=== PATIENT | female | born 1955 | race Caucasian/White ===

== ENCOUNTER → 2018-05-09 | Outpatient (CLI) | payer MEDICARE, BC ==
[~2018-05-09] MED LIST: ALBU3IS INH; ALBU90OI6 INH; ALLEGRA ALLERG180 MG PO; ALPR.5 PO; AMOCLA500 PO; ASPI325 PO; BUDE.25 INH; FLUSAL5005 INH; IBUP800; IBUP800 PO; LEVA.63IS INH; LISI5 PO; PRED20 PO; PRODEXEL PO; Prednisone20 MG PO; SPIRIVA RESPIMAT4 G1; Singulair10 MG PO; TYLECOD3 PO
[2018-05-09 14:37] LABS: Appearance, Urine Cloudy (Clear); Bilirubin, Urine Neg (Neg); Blood, Urine 3+ (Neg); Color, Urine Yellow (P-Yellow); Glucose Qualitative, Urine Neg (Neg); Ketones, Urine Neg (Neg); Leukocyte Esterase, Urine 3+ (Neg); Nitrite, Urine Neg (Neg); Protein, Urine 2+ (Neg); Urobilinogen, Urine NORM (Normal)
[2018-05-09 14:51] LABS: Bacteria Few /hpf; Squamous Epithelial Cells Few /hpf (Few); White Blood Cells, Urine TNTC /hpf (0-5)
== END ==
LOC: LAB 12:50 → LAB SHORT 12:50
PROVIDERS: Nurse Practitioner Family
DX: R30.0 Dysuria (principal); R35.0 Frequency of micturition
CPT/HCPCS: 81001; 87077; 87086; 87186

== ENCOUNTER → 2018-11-16 | Outpatient (CLI) | payer MEDICARE, BC ==
[2018-11-17 15:06] LABS: HPV 16 Negative (Negative); HPV 18 Negative (Negative); HPV OTHER HR TYPES Negative (Negative)
== END | disposition home or self-care (01) ==
LOC: LAB SHORT 14:02 → LAB 14:02
PROVIDERS: Nurse Practitioner Family
DX: Z12.4 Encounter for screening for malignant neoplasm of cervix (principal)
CPT/HCPCS: 87624; G0145

== ENCOUNTER 2019-03-17 14:48 | Inpatient (IN) | payer MEDICARE ==
[~2019-03-17] VITALS: Ht 165.1 cm; Wt 85.5 kg
[2019-03-17 15:27] LABS: BASOPHILS ABSOLUTE AUTO 0.05 K/mm3 (0.00-0.23); BASOPHILS PERCENT AUTO 0 % (0-2); EOSINOPHILS ABSOLUTE AUTO 0.66 K/mm3 (0.00-0.68); EOSINOPHILS PERCENT AUTO 6 % (0-6); Hematocrit 44.2 % (33.0-51.0); Hemoglobin 14.1 g/dL (11.5-16.0); IMMATURE GRAN ABSOLUTE AUTO 0.04 K/mm3 (0.00-0.10); IMMATURE GRAN PERCENT AUTO 0 % (0-1); LYMPHOCYTES PERCENT AUTO 15 % (21-46); MONOCYTES ABSOLUTE AUTO 0.56 K/mm3 (0.16-1.47); MONOCYTES PERCENT AUTO 5 % (4-13); Mean Corpuscular HGB 28.8 pg (26.0-34.0); Mean Corpuscular HGB Conc 31.9 g/dL (31.5-36.5); Mean Corpuscular Volume 90 fL (80-100); Mean Platelet Volume 10.1 fL (9.1-12.4); NEUTROPHILS ABSOLUTE AUTO 8.65 K/mm3 (1.96-9.15); NEUTROPHILS PERCENT AUTO 74 % (41-73); Platelet Count 303 K/mm3 (150-400); RDW Coefficient Variation 13.2 % (11.7-14.2); RDW Standard Deviation 43.8 fL (35.1-46.3); White Blood Cell Count 11.66 K/mm3 (4.00-11.30)
[2019-03-17] MEDS ORDERED: IBU800 MG PO (15:37)
[2019-03-17] MEDS ORDERED: TRIDERM28.4 GM TOP (15:38)
[2019-03-17 15:48] LABS: Alanine Aminotransfer (ALT/SGP 22 U/L (12-78); Albumin, Blood 3.8 g/dL (3.4-5.0); Alk Phos 121 U/L (50-136); Anion Gap 9 mmol/L (6-16); Aspartate Aminotrans (AST/SGOT 24 U/L (12-37); Bilirubin, Total 0.6 mg/dL (0.1-1.0); Blood Urea Nitrogen 19 mg/dL (8-24); Bun/Creatinine Ratio 30.4 (12.0-20.0); CO2, Blood 25 mmol/L (21-32); Calcium, Blood 8.8 mg/dL (8.5-10.1); Chloride, Blood 106 mmol/L (98-108); Creatinine, Blood 0.62 mg/dL (0.40-1.00); Globulin, Blood 3.7 g/dL (2.2-4.0); Glomerular Filtration Rate >60 (60-); Glucose, Blood 105 mg/dL (70-99); Potassium, Blood 3.5 mmol/L (3.5-5.5); Sodium, Blood 140 mmol/L (136-145); Total Protein, Blood 7.5 g/dL (6.4-8.2)
[2019-03-17 17:07] LABS: Bicarbonate Venous 25.6 mmol/L (24.0-30.0); PCO2 Venous 33.5 mmHg (38-42); PO2 Venous 57.4 mmHg (38-42); pH Blood Venous 7.48 (7.34-7.37)
[2019-03-17 20:28] LABS: Source, Urine Clean Catch
[2019-03-17 20:34] LABS: Bilirubin, Urine Neg (Neg); Blood, Urine Neg (Neg); Glucose Qualitative, Urine Neg (Neg); Ketones, Urine 2+ (Neg); Leukocyte Esterase, Urine 1+ (Neg); Nitrite, Urine Neg (Neg); Protein, Urine Neg (Neg); Urobilinogen, Urine NORM (Normal)
[2019-03-17 20:52] LABS: Appearance, Urine Clear (Clear); Color, Urine Pale Yellow (P-Yellow)
[2019-03-17 20:53] LABS: Bacteria Not Seen /hpf; Red Blood Cells, Urine 0-2 /hpf (0-2); Squamous Epithelial Cells Rare /hpf (Few); White Blood Cells, Urine 0-2 /hpf (0-5)
--- NOTE | 2019-03-18 02:37 | NUR ---
PT REMAINS ALERT, ORIENTED, AND INDEPENDENT. PT COMPLAINS OF SOB ON EXERTION ONLY. 2L NC AT BEDTIME THAT IS HER HOME SETTING. NO COMPLAINTS OF PAIN. MEDS GIVEN PERSCRIBED. NO CALLS FROM TELE RECIEVED.WILL CONTINUE TO MONITOR PT.
[2019-03-18 05:29] LABS: Hematocrit 39.4 % (33.0-51.0); Hemoglobin 12.6 g/dL (11.5-16.0); Mean Corpuscular HGB 28.4 pg (26.0-34.0); Mean Corpuscular Volume 89 fL (80-100); Mean Platelet Volume 10.6 fL (9.1-12.4); Platelet Count 263 K/mm3 (150-400); RDW Coefficient Variation 13.2 % (11.7-14.2); RDW Standard Deviation 43.4 fL (35.1-46.3); Red Blood Cell Count 4.44 M/mm3 (3.80-5.20)
[2019-03-18 05:53] LABS: Alanine Aminotransfer (ALT/SGP 21 U/L (12-78); Albumin, Blood 3.5 g/dL (3.4-5.0); Alk Phos 104 U/L (50-136); Anion Gap 9 mmol/L (6-16); Aspartate Aminotrans (AST/SGOT 10 U/L (12-37); Bilirubin, Total 0.4 mg/dL (0.1-1.0); Blood Urea Nitrogen 13 mg/dL (8-24); Bun/Creatinine Ratio 28.3 (12.0-20.0); CO2, Blood 24 mmol/L (21-32); Calcium, Blood 8.7 mg/dL (8.5-10.1); Chloride, Blood 110 mmol/L (98-108); Creatinine, Blood 0.46 mg/dL (0.40-1.00); Globulin, Blood 3.5 g/dL (2.2-4.0); Glomerular Filtration Rate >60 (60-); Glucose, Blood 177 mg/dL (70-99); Potassium, Blood 3.4 mmol/L (3.5-5.5); Sodium, Blood 143 mmol/L (136-145)
[2019-03-18] MEDS ORDERED: AZIT500 PO (10:33)
[2019-03-18] MEDS ORDERED: ACET325 PO (10:34)
[2019-03-18] MEDS ORDERED: BENZ100A PO (10:36)
[2019-03-18] MEDS ORDERED: ROBITUSSIN COU237 M1 PO (10:37)
[2019-03-18] MEDS ORDERED: PRED20 PO (10:37)
--- NOTE | 2019-03-18 12:03 | NUR ---
DISCHARGE NOTE PATIENT DISCHARGED HOME WITH IN PRIVATE VEHICLE. IV REMOVED. PATIENT STATES BREATHING HAS RETURNED TO BASELINE. MED LIST FAXED TO [facility]. DISCHARGE PACKET GIVEN TO PATIENT AND PT NOTIFIED THAT MEDS WERE FAXED TO [facility]. NEW MEDS EXPLAINED TO PT. PT VERBALIZED UNDERSTANDING AND SIGNED DC FORM. PATIENT DISCHARGED AT 10:54 AM.
== END 2019-03-18 10:55 | disposition home or self-care (01) | DRG 202 ==
LOC: ER 14:48 → MEDS 18:13 → ENPENDDIS 03-18 09:46 → MEDS 03-18 10:55
PROVIDERS: Physician Assistant; ADMIT Internal Medicine
DX: J45.901 Unspecified asthma with (acute) exacerbation (principal); J96.91 Respiratory failure, unspecified with hypoxia; I50.42 Chronic combined systolic (congestive) and diastolic (congestive) heart failure; J44.1 Chronic obstructive pulmonary disease with (acute) exacerbation; Z99.81 Dependence on supplemental oxygen; M81.0 Age-related osteoporosis without current pathological fracture; Z96.642 Presence of left artificial hip joint; Z87.891 Personal history of nicotine dependence; R00.0 Tachycardia, unspecified; J03.90 Acute tonsillitis, unspecified
CPT/HCPCS: 36415; 71045; 71260; 80053; 81001; 82803; 83880; 84145; 85025; 85027; 85379; 87086; 87147; 93005; 93010; 94640; 94644; 94760; 96374-59; 96375-59; 99285-25; J0456; J1650; J2930; J3475; J7050; J7120; Q9967

== ENCOUNTER 2019-10-04 07:24 | Day surgery (SDC) | payer MEDICARE ==
[~2019-10-04 07:24] MED LIST changes: +ACET325 PO; +AZIT500 PO; +BENZ100A PO; +IBU800 MG PO; +ROBITUSSIN COU237 M1 PO; +TRIDERM28.4 GM TOP
== END 2019-10-04 22:40 | disposition home or self-care (01) ==
LOC: MOI US 07:24 → MOI MAM 08:00 → MOI US 22:40
DX: D24.1 Benign neoplasm of right breast (principal)
CPT/HCPCS: 19083; 77065; A4648; G0279

== ENCOUNTER 2019-10-15 08:01 | Day surgery (SDC) | payer MEDICARE ==
[2019-10-18] MEDS ORDERED: BUDE.25 NEB (14:41)
[2019-10-18] MEDS ORDERED: IPRATROPIUM/ALBUTERO NEB (14:41)
[2019-10-18] MEDS ORDERED: BENADRYL25 MG PO (14:42)
[2019-10-18] MEDS ORDERED: MONT10T PO (14:42)
[2019-10-18] MEDS ORDERED: Flonase 0.05% N16 GM (14:43)
[2019-10-18] MEDS ORDERED: HYDHCL25 PO (14:44)
[2019-10-18] MEDS ORDERED: DYMISTA NASAL S23 GM (14:44)
[2019-10-18] MEDS ORDERED: PSEU120ER PO (14:45)
== END 2019-10-15 23:24 | disposition home or self-care (01) ==
LOC: MOI US 08:01
DX: D24.1 Benign neoplasm of right breast (principal)
CPT/HCPCS: 19285; 77065

== ENCOUNTER 2019-10-20 08:27 | Day surgery (SDC) | payer MEDICARE ==
[~2019-10-20] VITALS: Ht 165.1 cm; Wt 87.5 kg
[~2019-10-20 08:27] MED LIST changes: +BENADRYL25 MG PO; +BUDE.25 NEB; +DYMISTA NASAL S23 GM; +Flonase 0.05% N16 GM; +HYDHCL25 PO; +IPRATROPIUM/ALBUTERO NEB; +MONT10T PO; +PSEU120ER PO
--- NOTE | 2019-10-20 09:30 | NUR ---
Ambulatory in Day Surgery Patient confirms NPO status and agrees with scheduled surgery. Lungs clear T/O to Auscultation.
--- NOTE | 2019-10-20 13:49 | NUR ---
Discharge instructions reviewed with patient. Patient verbalizes understanding. Copy given to patient to take home. Discharged via wheelchair to private car for ride home. PT STATED SATISFACTION OF CARE.
== END 2019-10-20 13:45 | disposition home or self-care (01) ==
LOC: ORSCMMR 08:27 → ORD 10:00 → ORSCMMR 10:00
PROVIDERS: Surgery
PROC: 0HBT0ZZ Excision of Right Breast, Open Approach (ICD-10-PCS; principal; 2019-10-20 10:00)
DX: D24.1 Benign neoplasm of right breast (principal); E78.5 Hyperlipidemia, unspecified; J44.9 Chronic obstructive pulmonary disease, unspecified; F41.9 Anxiety disorder, unspecified; Z87.891 Personal history of nicotine dependence; Z79.899 Other long term (current) drug therapy
CPT/HCPCS: 76098; 88305; J0690; J1100; J1885; J2405; J2704; J3010; J7120

== ENCOUNTER 2021-01-13 12:51 | Emergency (ER) | payer MEDICARE, OTHER ==
[~2021-01-13] VITALS: Ht 165.1 cm; Wt 88.5 kg
[~2021-01-13 12:51] MED LIST changes: +IPRAT-ALBUT 0.5-3 ML INH; +PULMOZYME INH
[2021-01-13] MEDS ORDERED: FURO20 PO (13:34)
[2021-01-13 14:30] LABS: BASOPHILS ABSOLUTE AUTO 0.05 K/mm3 (0.00-0.23); BASOPHILS PERCENT AUTO 1 % (0-2); EOSINOPHILS ABSOLUTE AUTO 0.42 K/mm3 (0.00-0.68); EOSINOPHILS PERCENT AUTO 5 % (0-6); Hematocrit 42.4 % (33.0-51.0); Hemoglobin 14.2 g/dL (11.5-16.0); IMMATURE GRAN ABSOLUTE AUTO 0.02 K/mm3 (0.00-0.10); IMMATURE GRAN PERCENT AUTO 0 % (0-1); LYMPHOCYTES ABSOLUTE AUTO 2.07 K/mm3 (0.84-5.20); LYMPHOCYTES PERCENT AUTO 23 % (21-46); MONOCYTES ABSOLUTE AUTO 0.61 K/mm3 (0.16-1.47); MONOCYTES PERCENT AUTO 7 % (4-13); Mean Corpuscular HGB 29.3 pg (26.0-34.0); Mean Corpuscular HGB Conc 33.5 g/dL (31.5-36.5); Mean Corpuscular Volume 88 fL (80-100); NEUTROPHILS ABSOLUTE AUTO 5.82 K/mm3 (1.96-9.15); NEUTROPHILS PERCENT AUTO 65 % (41-73); Platelet Count 308 K/mm3 (150-400); RDW Coefficient Variation 12.2 % (11.7-14.2); RDW Standard Deviation 38.6 fL (35.1-46.3); Red Blood Cell Count 4.84 M/mm3 (3.80-5.20); White Blood Cell Count 8.99 K/mm3 (4.00-11.30)
[2021-01-13 14:31] LABS: PCO2 Arterial 28.7 mmHg (35-45); PO2 Arterial 86.8 mmHg (80-100)
[2021-01-13 14:52] LABS: Alanine Aminotransfer (ALT/SGP 25 U/L (12-78); Albumin, Blood 3.9 g/dL (3.4-5.0); Albumin/Globulin Ratio 1.1 (0.8-1.8); Alk Phos 116 U/L (50-136); Anion Gap 9 mmol/L (6-16); Aspartate Aminotrans (AST/SGOT 19 U/L (12-37); Bilirubin, Total 0.9 mg/dL (0.1-1.0); Blood Urea Nitrogen 18 mg/dL (8-24); Bun/Creatinine Ratio 23.6 (12.0-20.0); CO2, Blood 23 mmol/L (21-32); Calcium, Blood 9.3 mg/dL (8.5-10.1); Chloride, Blood 108 mmol/L (98-108); Creatinine, Blood 0.76 mg/dL (0.40-1.00); Globulin, Blood 3.6 g/dL (2.2-4.0); Glomerular Filtration Rate >60 (60-); Glucose, Blood 93 mg/dL (70-99); Potassium, Blood 3.4 mmol/L (3.5-5.5); Sodium, Blood 140 mmol/L (136-145); Total Protein, Blood 7.5 g/dL (6.4-8.2)
[2021-01-13] MEDS ORDERED: METPRE4DP PO (15:48)
== END 2021-01-13 16:00 | disposition home or self-care (01) ==
LOC: ER 12:51
PROVIDERS: Physician Assistant
DX: J45.909 Unspecified asthma, uncomplicated (principal); J44.9 Chronic obstructive pulmonary disease, unspecified; Z79.899 Other long term (current) drug therapy
CPT/HCPCS: 36415; 36600; 71046; 80053; 82803; 85025; 94644; 96365; 96375; 99285-25; J2930; J3475

== ENCOUNTER → 2021-01-30 | Outpatient (CLI) | payer MEDICARE, OTHER ==
[~2021-01-30] MED LIST changes: +FURO20 PO; +METPRE4DP PO
== END | disposition home or self-care (01) ==
LOC: LAB SHORT 09:35 → LAB 09:35
DX: N39.0 Urinary tract infection, site not specified (principal)
CPT/HCPCS: 87077; 87086; 87147; 87186

== ENCOUNTER → 2021-04-25 | Outpatient (CLI) | payer MEDICARE, OTHER | LOC: LAB SHORT 09:30 → LAB 09:30 | DX: R35.0 Frequency of micturition (principal); N39.0 Urinary tract infection, site not specified; R31.9 Hematuria, unspecified | CPT/HCPCS: 87077; 87086; 87186 ==

== ENCOUNTER 2021-05-06 07:32 | Emergency (ER) | payer MEDICARE, OTHER ==
[~2021-05-06] VITALS: Ht 165.1 cm; Wt 86.2 kg
== END 2021-05-06 09:40 | disposition home or self-care (01) ==
LOC: ER 07:32
DX: M25.551 Pain in right hip (principal); J44.9 Chronic obstructive pulmonary disease, unspecified; Z79.899 Other long term (current) drug therapy; Z87.891 Personal history of nicotine dependence; Z96.643 Presence of artificial hip joint, bilateral
CPT/HCPCS: 73502; 99283-25; A9270

== ENCOUNTER 2021-09-28 10:59 | Inpatient (IN) | payer MEDICARE, OTHER ==
[~2021-09-28] VITALS: Ht 165.1 cm; Wt 84.1 kg
[2021-09-28 11:38] LABS: BASOPHILS ABSOLUTE AUTO 0.05 K/mm3 (0.00-0.23); BASOPHILS PERCENT AUTO 1 % (0-2); EOSINOPHILS ABSOLUTE AUTO 0.76 K/mm3 (0.00-0.68); EOSINOPHILS PERCENT AUTO 8 % (0-6); Hematocrit 43.9 % (33.0-51.0); Hemoglobin 14.3 g/dL (11.5-16.0); IMMATURE GRAN ABSOLUTE AUTO 0.02 K/mm3 (0.00-0.10); IMMATURE GRAN PERCENT AUTO 0 % (0-1); LYMPHOCYTES ABSOLUTE AUTO 2.01 K/mm3 (0.84-5.20); LYMPHOCYTES PERCENT AUTO 21 % (21-46); MONOCYTES ABSOLUTE AUTO 0.61 K/mm3 (0.16-1.47); MONOCYTES PERCENT AUTO 6 % (4-13); Mean Corpuscular HGB 29.7 pg (26.0-34.0); Mean Corpuscular HGB Conc 32.6 g/dL (31.5-36.5); Mean Corpuscular Volume 91 fL (80-100); Mean Platelet Volume 9.9 fL (9.1-12.4); NEUTROPHILS ABSOLUTE AUTO 6.08 K/mm3 (1.96-9.15); NEUTROPHILS PERCENT AUTO 64 % (41-73); Platelet Count 334 K/mm3 (150-400); RDW Coefficient Variation 12.5 % (11.7-14.2); RDW Standard Deviation 41.7 fL (35.1-46.3); Red Blood Cell Count 4.82 M/mm3 (3.80-5.20); White Blood Cell Count 9.53 K/mm3 (4.00-11.30)
[2021-09-28 11:54] LABS: Alanine Aminotransfer (ALT/SGP 42 U/L (12-78); Albumin, Blood 3.6 g/dL (3.4-5.0); Alk Phos 132 U/L (50-136); Anion Gap 6 mmol/L (6-16); Aspartate Aminotrans (AST/SGOT 37 U/L (12-37); Bilirubin, Total 0.6 mg/dL (0.1-1.0); Blood Urea Nitrogen 11 mg/dL (8-24); Bun/Creatinine Ratio 17.4 (12.0-20.0); CO2, Blood 25 mmol/L (21-32); Calcium, Blood 8.8 mg/dL (8.5-10.1); Chloride, Blood 107 mmol/L (98-108); Creatinine, Blood 0.63 mg/dL (0.40-1.00); Globulin, Blood 3.5 g/dL (2.2-4.0); Glomerular Filtration Rate >60 (60-); Glucose, Blood 106 mg/dL (70-99); Potassium, Blood 3.9 mmol/L (3.5-5.5); Sodium, Blood 138 mmol/L (136-145); Total Protein, Blood 7.1 g/dL (6.4-8.2)
[2021-09-28 12:50] LABS: Influenza A, PCR NEGATIVE (NEGATIVE); Influenza B, PCR NEGATIVE (NEGATIVE); Resp Syncytial Virus, PCR NEGATIVE (NEGATIVE); SARS-Cov-2 (COVID-19) PCR, MMC NEGATIVE (NEGATIVE)
--- NOTE | 2021-09-28 16:11 | NUR ---
CARE ASSUMPTION/ARRIVAL TO PCU PATIENT ARRIVED FROM ED VIA GURNEY AND TRANSFERED TO PCU BED INDEPENDENTLY. PATIENT ORIENTATED TO ROOM AND CALL LIGHT. VSS. SPO2 >90% ON 3.5L NC. TELE SINUS TACH AT 112. PATIENT IS ALERT AND ORIENTATED X4. NEURO IS INTACT. PERRLA. PATIENT REPORTS NO NUMBNESS OR TINGLING. PATIENT LUNG SOUNDS RIGHT SIDE ARE CLEAR AND DIM, LEFT SIDE ARE COARSE AND DIM. PATIENT REPORTS NO SHORTNESS OF BREATH. PATIENT HAS NO SKIN ISSUES NOTED. NO GI/ ISSUES NOTED. STRONG RADIAL AND PEDIS PULSES. CAP REFILL <3SECONDS. PATIENT REPORTS NO QUESTIONS OR CONCERNS AT THIS TIME. CALL LIGHT WITHIN REACH. WILL CONTINUE TO MONITOR AND PROVIDE CARE.
--- NOTE | 2021-09-28 17:20 | NUR ---
SHIFT SUMMARY PATIENT NEURO REMAINS UNCHANGED. VSS. CIWA 0-6. PATIENT REPORTS NO PAIN. NO ACUTE CHANGES THIS SHIFT. CALL LIGHT WITHIN, NEEDS FREQUENT REMINDERS TO USE CALL LIGHT. BED ALARM ON AND IN LOWEST POSITION. WILL CONTINUE TO MONITOR AND PROVIDE CARE UNTIL HAND OFF WITH NEXT SHIFT.
--- NOTE | 2021-09-28 17:43 | NUR ---
SHIFT SUMMARY PATIENT NEURO REMAINS INTACT. VSS. SPO2 >90% ON 3.5L NC. PATIENT HAS NO SHORTNESS OF BREATH OR DESAT WITH ACTIVITY OR EATING DINNER. NO ACUTE CHANGES SINCE ARRIVAL. SEE PREVIOUS NOTE. CALL LIGHT WITHIN REACH AND BED IN LOWEST POSITION. WILL CONTINUE TO MONITOR AND PROVIDE CARE UNTIL HAND OFF WITH NEXT SHIFT.
[2021-09-29 03:54] LABS: BASOPHILS ABSOLUTE AUTO 0.01 K/mm3 (0.00-0.23); BASOPHILS PERCENT AUTO 0 % (0-2); EOSINOPHILS PERCENT AUTO 0 % (0-6); Hematocrit 42.2 % (33.0-51.0); Hemoglobin 13.7 g/dL (11.5-16.0); IMMATURE GRAN ABSOLUTE AUTO 0.04 K/mm3 (0.00-0.10); IMMATURE GRAN PERCENT AUTO 1 % (0-1); LYMPHOCYTES ABSOLUTE AUTO 0.66 K/mm3 (0.84-5.20); LYMPHOCYTES PERCENT AUTO 8 % (21-46); MONOCYTES PERCENT AUTO 1 % (4-13); Mean Corpuscular HGB 29.5 pg (26.0-34.0); Mean Corpuscular HGB Conc 32.5 g/dL (31.5-36.5); Mean Corpuscular Volume 91 fL (80-100); Mean Platelet Volume 9.8 fL (9.1-12.4); NEUTROPHILS ABSOLUTE AUTO 7.09 K/mm3 (1.96-9.15); NEUTROPHILS PERCENT AUTO 90 % (41-73); Platelet Count 308 K/mm3 (150-400); RDW Coefficient Variation 12.6 % (11.7-14.2); RDW Standard Deviation 42.1 fL (35.1-46.3); Red Blood Cell Count 4.64 M/mm3 (3.80-5.20)
[2021-09-29 04:18] LABS: Alanine Aminotransfer (ALT/SGP 39 U/L (12-78); Albumin, Blood 3.4 g/dL (3.4-5.0); Albumin/Globulin Ratio 0.9 (0.8-1.8); Alk Phos 122 U/L (50-136); Anion Gap 6 mmol/L (6-16); Aspartate Aminotrans (AST/SGOT 17 U/L (12-37); Bilirubin, Total 0.7 mg/dL (0.1-1.0); Blood Urea Nitrogen 11 mg/dL (8-24); CO2, Blood 24 mmol/L (21-32); Calcium, Blood 8.9 mg/dL (8.5-10.1); Chloride, Blood 110 mmol/L (98-108); Globulin, Blood 3.9 g/dL (2.2-4.0); Glomerular Filtration Rate >60 (60-); Glucose, Blood 174 mg/dL (70-99); Potassium, Blood 3.9 mmol/L (3.5-5.5); Sodium, Blood 140 mmol/L (136-145); Total Protein, Blood 7.3 g/dL (6.4-8.2)
--- NOTE | 2021-09-29 06:19 | NUR ---
SHIFT SUMMARY PT ALERT AND ORIENTED X4. BP STABLE. HR ST 100'S. ON 4L NC MAINTAINING SATS OVER 96%. NC IN MOUTH DUE TO NASAL CONGESTION. VOIDS INDEPENDENTLY. NO C/O SOB. UNABLE TO SLEEP MUCH DURING THE NIGHT. IN BED RESTING WITH CALL ALARM AT SIDE. WILL CONTINUE TO MONITOR UNTIL REPORT GIVEN TO [facility]NH[facility]
[2021-09-29] MEDS ORDERED: AZIT500 PO (12:07)
[2021-09-29] MEDS ORDERED: BENZ100A PO (12:08)
[2021-09-29] MEDS ORDERED: GUAI600T33 PO (12:10)
[2021-09-29] MEDS ORDERED: PRED20 PO (12:21)
--- NOTE | 2021-09-29 12:48 | NUR ---
UPDATE PT PROVIDED DC INSTRUCTIONS. PT EDUCATED ON NEW MEDICATIONS. ALL QUESTIONS ANSWERED. PT TAKEN OUT BY MARY
== END 2021-09-29 12:45 | disposition home or self-care (01) | DRG 189 ==
LOC: ER 10:59 → PCU 13:13
PROVIDERS: Nurse Practitioner Acute Care; Physician Assistant; Student in an Organized Health Care Education/Training Program; ADMIT Internal Medicine
PROC: 5A09357 Assistance with Respiratory Ventilation, Less than 24 Consecutive Hours, Continuous Positive Airway Pressure (ICD-10-PCS; principal; 2021-09-28)
DX: J96.21 Acute and chronic respiratory failure with hypoxia (principal); J44.1 Chronic obstructive pulmonary disease with (acute) exacerbation; R65.10 Systemic inflammatory response syndrome (SIRS) of non-infectious origin without acute organ dysfunction; Z20.822 Contact with and (suspected) exposure to COVID-19; E66.01 Morbid (severe) obesity due to excess calories; Z68.31 Body mass index [BMI] 31.0-31.9, adult; Z96.643 Presence of artificial hip joint, bilateral; Z79.899 Other long term (current) drug therapy; Z90.710 Acquired absence of both cervix and uterus; Z98.42 Cataract extraction status, left eye; Z98.41 Cataract extraction status, right eye; Z87.891 Personal history of nicotine dependence
CPT/HCPCS: 0241U; 36415; 71045; 80053; 83880; 84484; 85025; 93005; 93010; 94640; 94760; 94762; 96374; 99285-25; A9270; J1650; J2930; J7030

== ENCOUNTER 2023-01-10 09:39 | Emergency (ER) | payer MEDICARE, OTHER ==
[~2023-01-10] VITALS: Ht 165.1 cm; Wt 88.5 kg
[~2023-01-10 09:39] MED LIST changes: +GUAI600T33 PO
[2023-01-10] MEDS ORDERED: BUDESONIDE0.5 MG/25 IH (09:49)
[2023-01-10 10:15] LABS: BASOPHILS ABSOLUTE AUTO 0.03 K/mm3 (0.00-0.23); BASOPHILS PERCENT AUTO 0 % (0-2); EOSINOPHILS ABSOLUTE AUTO 0.62 K/mm3 (0.00-0.68); EOSINOPHILS PERCENT AUTO 9 % (0-6); Hematocrit 42.5 % (33.0-51.0); Hemoglobin 13.9 g/dL (11.5-16.0); IMMATURE GRAN ABSOLUTE AUTO 0.02 K/mm3 (0.00-0.10); IMMATURE GRAN PERCENT AUTO 0 % (0-1); LYMPHOCYTES ABSOLUTE AUTO 1.19 K/mm3 (0.84-5.20); LYMPHOCYTES PERCENT AUTO 17 % (21-46); MONOCYTES PERCENT AUTO 9 % (4-13); Mean Corpuscular HGB 29.8 pg (26.0-34.0); Mean Corpuscular HGB Conc 32.7 g/dL (31.5-36.5); Mean Corpuscular Volume 91 fL (80-100); Mean Platelet Volume 9.9 fL (9.1-12.4); NEUTROPHILS PERCENT AUTO 64 % (41-73); Platelet Count 243 K/mm3 (150-400); RDW Coefficient Variation 12.9 % (11.7-14.2); RDW Standard Deviation 42.9 fL (35.1-46.3); Red Blood Cell Count 4.66 M/mm3 (3.80-5.20); White Blood Cell Count 6.86 K/mm3 (4.00-11.30)
[2023-01-10 10:35] LABS: Albumin, Blood 3.5 g/dL (3.4-5.0); Albumin/Globulin Ratio 1.1 (0.8-1.8); Bilirubin, Total 0.9 mg/dL (0.1-1.0); Calcium, Blood 8.6 mg/dL (8.5-10.1); Creatinine, Blood 0.52 mg/dL (0.40-1.00); Globulin, Blood 3.1 g/dL (2.2-4.0); Potassium, Blood 3.7 mmol/L (3.5-5.5); Total Protein, Blood 6.6 g/dL (6.4-8.2)
[2023-01-10 11:51] VITALS: BP 142/83
== END 2023-01-10 11:59 | disposition home or self-care (01) ==
LOC: ER 09:39
PROVIDERS: Emergency Medicine
DX: H81.399 Other peripheral vertigo, unspecified ear (principal); S61.412A Laceration without foreign body of left hand, initial encounter; S50.02XA Contusion of left elbow, initial encounter; J44.9 Chronic obstructive pulmonary disease, unspecified; I10 Essential (primary) hypertension; Z79.52 Long term (current) use of systemic steroids; Z79.899 Other long term (current) drug therapy; W18.30XA Fall on same level, unspecified, initial encounter; Y92.096 Garden or yard of other non-institutional residence as the place of occurrence of the external cause
CPT/HCPCS: 12001; 70450; 73070; 80053; 85025; 99285-25; A9270; J7030

== ENCOUNTER → 2023-03-27 | Outpatient (CLI) | payer MEDICARE ==
[~2023-03-27] MED LIST changes: +BUDESONIDE0.5 MG/25 IH
== END ==
LOC: LAB 08:32 → LAB SHORT 08:32
DX: R30.0 Dysuria (principal)
CPT/HCPCS: 87077; 87086; 87147; 87186

== ENCOUNTER 2023-09-30 08:29 | Emergency (ER) | payer MEDICARE, OTHER ==
[~2023-09-30] VITALS: Ht 165.1 cm; Wt 88.5 kg
[2023-09-30] MEDS ORDERED: Albuterol 2.5 MG/3 ML VIAL INH SCH (08:45)
[2023-09-30] MEDS ORDERED: Ipratropium Bromide INH 0.02% 0.5 mg/2.5ML Vial INH SCH (08:45)
[2023-09-30] MEDS ORDERED: MethylPREDNISolone Sod Succ 125 MG Vial IV ONE (08:45)
[2023-09-30 09:10] LABS: PCO2 Arterial 30.5 mmHg (35-45); PO2 Arterial 60.5 mmHg (80-100); pH Blood Arterial 7.51 (7.35-7.45)
[2023-09-30 09:12] LABS: BASOPHILS ABSOLUTE AUTO 0.03 K/mm3 (0.00-0.23); BASOPHILS PERCENT AUTO 0 % (0-2); EOSINOPHILS ABSOLUTE AUTO 0.16 K/mm3 (0.00-0.68); EOSINOPHILS PERCENT AUTO 2 % (0-6); Hemoglobin 14.1 g/dL (11.5-16.0); IMMATURE GRAN ABSOLUTE AUTO 0.03 K/mm3 (0.00-0.10); IMMATURE GRAN PERCENT AUTO 0 % (0-1); LYMPHOCYTES ABSOLUTE AUTO 1.04 K/mm3 (0.84-5.20); LYMPHOCYTES PERCENT AUTO 13 % (21-46); MONOCYTES ABSOLUTE AUTO 0.79 K/mm3 (0.16-1.47); MONOCYTES PERCENT AUTO 10 % (4-13); Mean Corpuscular HGB 29.6 pg (26.0-34.0); Mean Corpuscular HGB Conc 32.8 g/dL (31.5-36.5); Mean Corpuscular Volume 90 fL (80-100); Mean Platelet Volume 9.4 fL (9.1-12.4); NEUTROPHILS ABSOLUTE AUTO 6.24 K/mm3 (1.96-9.15); NEUTROPHILS PERCENT AUTO 75 % (41-73); Platelet Count 314 K/mm3 (150-400); RDW Coefficient Variation 12.4 % (11.7-14.2); RDW Standard Deviation 41.3 fL (35.1-46.3); Red Blood Cell Count 4.77 M/mm3 (3.80-5.20); White Blood Cell Count 8.29 K/mm3 (4.00-11.30)
[2023-09-30 09:41] LABS: Adenovirus Not Detected (NOT DETECT); Bordetella pertussis Not Detected (NOT DETECT); Chlamydophila pneumoniae Not Detected (NOT DETECT); Coronavirus 229E Not Detected (NOT DETECT); Coronavirus HKU1 Not Detected (NOT DETECT); Coronavirus NL63 Not Detected (NOT DETECT); Coronavirus OC43 Not Detected (NOT DETECT); Human Metapneumovirus Not Detected (NOT DETECT); Human Rhinovirus/Enterovirus Not Detected (NOT DETECT); Influenza A/2009-H1 Not Detected (NOT DETECT); Influenza A/H1 Not Detected (NOT DETECT); Influenza A/H3 Not Detected (NOT DETECT); Influenza B Not Detected (NOT DETECT); Mycoplasma pneumoniae Not Detected (NOT DETECT); Parainfluenza Virus 1 Not Detected (NOT DETECT); Parainfluenza Virus 2 Not Detected (NOT DETECT); Parainfluenza Virus 3 Not Detected (NOT DETECT); Parainfluenza Virus 4 Not Detected (NOT DETECT); Respiratory Syncytial Virus Detected (NOT DETECT); SARS-Cov-2 (COVID-19), BioFire Not Detected (NOT DETECT)
[2023-09-30 09:42] LABS: Albumin, Blood 3.5 g/dL (3.4-5.0); Albumin/Globulin Ratio 0.9 (0.8-1.8); Bilirubin, Total 0.5 mg/dL (0.1-1.0); Calcium, Blood 8.7 mg/dL (8.5-10.1); Creatinine, Blood 0.58 mg/dL (0.40-1.00); Globulin, Blood 3.7 g/dL (2.2-4.0); Potassium, Blood 3.2 mmol/L (3.5-5.5); Total Protein, Blood 7.2 g/dL (6.4-8.2)
[2023-09-30 10:00] VITALS: BP 127/88
[2023-09-30] MEDS ORDERED: Acetaminophen 325 MG TABLET PO ONE (10:35)
[2023-09-30] MEDS ORDERED: PRED20 PO (11:10)
== END 2023-09-30 11:34 | disposition home or self-care (01) ==
LOC: ER 08:29
PROVIDERS: Physician Assistant
DX: J44.1 Chronic obstructive pulmonary disease with (acute) exacerbation (principal); B97.4 Respiratory syncytial virus as the cause of diseases classified elsewhere; M81.0 Age-related osteoporosis without current pathological fracture; Z79.52 Long term (current) use of systemic steroids; Z79.899 Other long term (current) drug therapy
CPT/HCPCS: 0202U; 36600; 71045; 80053; 82803; 83880; 84145; 84484; 85025; 85379; 93005; 93010; 94640; 94644; 94664; 96374; 99285-25; A9270; J2930

== ENCOUNTER → 2023-11-18 | Outpatient (CLI) | payer MEDICARE, OTHER | END | disposition home or self-care (01) | LOC: LAB 10:34 → LAB SHORT 10:34 | DX: R50.9 Fever, unspecified (principal); R82.90 Unspecified abnormal findings in urine | CPT/HCPCS: 87077; 87086; 87186 ==

== ENCOUNTER → 2024-04-27 | Outpatient (CLI) | payer MEDICARE, OTHER | LOC: LAB 08:05 → LAB SHORT 08:05 | DX: R30.0 Dysuria (principal) | CPT/HCPCS: 87077; 87086; 87186 ==

== ENCOUNTER → 2024-05-10 | Outpatient (CLI) | payer MEDICARE | END | disposition home or self-care (01) | LOC: LAB SHORT 13:38 → LAB 13:38 | DX: R30.0 Dysuria (principal) | CPT/HCPCS: 87077; 87086; 87186 ==

== ENCOUNTER → 2024-07-12 | Outpatient (CLI) | payer MEDICARE, OTHER | END | disposition home or self-care (01) | LOC: LAB 07:54 → LAB SHORT 07:54 | DX: K11.8 Other diseases of salivary glands (principal) | CPT/HCPCS: 88173 ==

== ENCOUNTER → 2024-08-24 | Outpatient (CLI) | payer MEDICARE, OTHER | END | disposition home or self-care (01) | LOC: LAB 11:36 → LAB SHORT 11:36 | DX: R30.0 Dysuria (principal) | CPT/HCPCS: 87077; 87086; 87186 ==

== ENCOUNTER → 2024-10-12 | Outpatient (CLI) | payer MEDICARE, OTHER | LOC: LAB SHORT 14:56 → LAB 14:56 | DX: N30.00 Acute cystitis without hematuria (principal) | CPT/HCPCS: 87077; 87086; 87186 ==

== ENCOUNTER → 2024-11-22 | Outpatient (CLI) | payer MEDICARE, OTHER ==
[2024-11-22 11:16] LABS: Source, Urine Clean Catch
[2024-11-22 15:03] LABS: Appearance, Urine Hazy (Clear); Bilirubin, Urine Neg (Neg); Blood, Urine 1+ (Neg); Color, Urine Yellow (P-Yellow); Glucose Qualitative, Urine Neg (Neg); Ketones, Urine Neg (Neg); Leukocyte Esterase, Urine 3+ (Neg); Nitrite, Urine Pos (Neg); Protein, Urine 2+ (Neg); Specific Gravity, Urine 1.025 (1.003-1.022); Urobilinogen, Urine NORM (Normal)
[2024-11-22 16:05] LABS: Amorphous Light (0-Heavy); Bacteria Many /hpf; Calcium Oxalate Crystals Few /hpf; Mucus Mod (0-Heavy); Red Blood Cells, Urine 0-2 /hpf (0-2); Squamous Epithelial Cells Few /hpf (Few); Transitional Epithelial Cells Few /hpf (0-Rare); White Blood Cells, Urine 25-50 /hpf (0-5)
== END ==
LOC: LAB SHORT 11:13 → LAB 11:13
PROVIDERS: Student in an Organized Health Care Education/Training Program
DX: R35.0 Frequency of micturition (principal)
CPT/HCPCS: 81001; 87077; 87086; 87186

== ENCOUNTER → 2025-02-21 | Outpatient (CLI) | payer MEDICARE, OTHER ==
[2025-02-21 13:15] LABS: Source, Urine Clean Catch
[2025-02-21 14:59] LABS: Bilirubin, Urine Neg (Neg); Glucose Qualitative, Urine Neg (Neg); Ketones, Urine Neg (Neg); Leukocyte Esterase, Urine Neg (Neg); Protein, Urine Neg (Neg); Specific Gravity, Urine 1.005 (1.003-1.022); Urobilinogen, Urine NORM (Normal)
[2025-02-21 15:48] LABS: Color, Urine Pale Yellow (P-Yellow)
== END ==
LOC: LAB SHORT 13:12 → LAB 13:12
PROVIDERS: Student in an Organized Health Care Education/Training Program
DX: R35.0 Frequency of micturition (principal)
CPT/HCPCS: 81003

== ENCOUNTER → 2025-07-28 | Outpatient (CLI) | payer MEDICARE, OTHER ==
[~2025-07-28] MED LIST changes: +AZELASTINE137 MCG/01; +BENADRYL25 MG; +FLUT.05NI; +FORMOTEROL20 MCG/2 M; +ONDA4ODT
== END ==
LOC: LAB 09:20 → LAB SHORT 09:20
DX: N30.00 Acute cystitis without hematuria (principal)
CPT/HCPCS: 87077; 87086; 87186